=== PATIENT | male | born 1940 | race Caucasian/White ===

== ENCOUNTER 2022-12-21 15:29 | Emergency (ER) | payer MEDICARE, SELFPAY ==
[2022-12-21 15:49] VITALS: BP 144/92; PULSE 62; RESP 18; TEMP 36.2; O2SAT 99
[2022-12-21 16:23] LABS: Absolute Lymphocyte Count 1.75 X10^3/uL (0.83-4.51); Absolute Neutrophil Count 5.8 X10^3/uL (2.0-7.7); Basophil# 0.05 X10^3/uL; Basophil% 0.6 % (0-1); Eosinophil# 0.16 X10^3/uL; Eosinophils% 1.9 % (0-5); Hematocrit 39.2 % (40-54); Hemoglobin 13.5 g/dL (13.0-16.5); Lymphocyte # 1.75 X10^3/ul (0.83-4.51); Lymphocyte % 20.3 % (19-41); Mean Corp Hgb Conc 34.4 g/dL (32-36); Mean Corpuscular Hgb 32.8 pg (27.0-32.0); Mean Corpuscular Volume 95.1 fL (80-94); Mean Platelet Vol. 9.8 fl (6.2-12.0); Monocyte# 0.85 X10^3/uL; Monocyte% 9.8 % (0-10); NRBC Flagged by Analyzer 0 % (0-5); Neutrophil # 5.81 X10^3/uL (2.7-7.7); Neutrophil % 67.2 % (47-70); Platelet Count 223 K/mm3 (150-450); RBC Distribution Width SD 45.1 fl (35.1-43.9); Red Blood Count 4.12 M/mm3 (4.6-6.2); White Blood Count 8.6 K/mm3 (4.4-11.0)
--- NOTE | 2022-12-21 16:28 | RAD_ITS ---
STUDY: XR Chest 1 View 12/21/2022 4:30 PM REASON FOR EXAM: Male, 82 years old. CHEST PAIN SOB COMPARISON: None TECHNIQUE: XR Chest 1 View FINDINGS: There is no demonstrated pleural abnormality. Normal heart size. Normal mediastinum. Normal marissa. Prominent appearing increased interstitial lung markings. Normal visualized pulmonary arteries. There is atherosclerotic calcification of the aortic arch with tortuosity. There are diffuse degenerative changes of the visualized thoracic spine. There is degenerative osteoarthritis of the bilateral shoulders. There is no demonstrated abnormality of the visualized soft tissue structures of the upper abdomen. RAD/Chest 1 View (Portable) IMPRESSION: There are no acute findings. Electronically Signed: Nikhil Araiza MD at 16:48 EDT ,
[2022-12-21 16:37] LABS: Anion Gap 6 (5-15); BUN 23 mg/dL (7-18); BUN/Creat Ratio 18.3 RATIO (10-20); Calcium,Total 9.4 mg/dL (8.5-10.1); Chloride 105 mmol/L (98-107); Creatinine, Serum 1.26 mg/dL (0.70-1.30); EST Glomerular Filtration Rate 58 mL/min (>60); Est Glom Filt Rate - Afr Amer 70 mL/min (>60); Glucose 96 mg/dL (74-106); Potassium 4.1 mmol/L (3.5-5.1); Sodium Level 137 mmol/L (136-145)
[2022-12-21 16:52] VITALS: BMI 26.8
[2022-12-21 16:53] VITALS: O2SAT 98
--- NOTE | 2022-12-21 17:30 | EDS_ITS ---
HPI History of Present Illness Chief Complaint: Shortness of Breath Informant: patient and spouse/S.O. Onset/Context/Timing Onset: Days Context: gradual Timing: Continuous Quality: Negative for Dyspnea on exertion, Orthopnea, PND or Wheezing Current Severity: Mild Maximum Severity: Mild Worsened by: Nothing Relieved by: Nothing Associated Symptoms rhinorrhea; Negative for cough Chest Pain: Positive for None Narrative Narrative: 82-year-old male history of diabetes. Complaining of nasal congestion making it difficult for him to breathe out of his nose. He denies any chest pain. He denies any fever or chills. No significant cough. He denies any nausea, vomiting or diarrhea. PE Risk Factors: Negative for Cancer, OCP + Smoking + > 35, Prior DVT or PE, Recent immobilization, Recent surgery or Recent travel Prior similar symptoms: Yes Recent Illness/Hospitalization: No PFSH PFSH Medical History Abdominal aortic aneurysm Diabetes Hypertension Smoker Home Medications atorvastatin 20 mg tablet 20 mg PO DAILY 12/21/22 [History Last Taken Unknown] lisinopril 20 mg tablet 20 mg PO DAILY 12/21/22 [History Last Taken Unknown] metformin 500 mg tablet,extended release 24 hr 500 mg PO DAILY 12/21/22 [History Last Taken Unknown] prednisone 20 mg tablet 40 mg (2 x 20 mg) PO DAILY 7 days #14 tabs 12/21/22 [Rx Last Taken Unknown] Allergy/AdvReac Type Severity Reaction Status Date / Time No Known Allergies Allergy Verified 12/21/22 15:54 Social History Smoking Status: Former smoker ROS ROS ED ROS Narrative Nasal congestion. Denies chest pain or fever. Denies any significant cough. Review of Systems ROS Unobtainable: Denies due to encephalopathy Constitutional Constitutional ED: Denies chills or fever(s) Eyes Eyes: Denies blurry vision ENT ENT ED: Reports rhinorrhea; Denies ear pain or sore throat Cardiovascular Cardiovascular: Denies chest pain Respiratory/Chest Respiratory/Chest: Reports dyspnea; Denies cough Gastrointestinal Gastrointestinal: Denies abdominal pain Genitourinary Genitourinary ED: Denies dysuria Musculoskeletal Musculoskeletal: Denies arthralgias Integumentary Denies abscess Neurologic Neurologic: Denies headache(s) Psychiatric Psychiatric: Denies anxiety Endocrine Endocrinology: Denies cold intolerance Hematologic/Lymphatic Hematologic/Lymphatic: Denies easy bleeding or easy bruising Allergic/Immunologic Allergic/Immunologic ED: Denies mouth swelling or tongue swelling EXAM Physical Exam Narrative Exam Narrative: Well-appearing 82-year-old male. Vital signs stable afebrile. Pulse ox 99% on room air no signs hypoxia. Patient is in no distress. HEENT exam he is got some nasal congestion. There is no active runny nose at this time. Posterior pharynx normal. TMs obscured by wax bilaterally. Neck nontender no JVD. Lungs clear to auscultation. Heart regular rhythm no murmur. Abdomen soft nontender. Moving all 4 extremities. Calves are nontender that edema or cords. Neurologically he is awake and alert with no focal motor deficits. Const Vital Signs: 12/21/22 15:49 12/21/22 16:53 12/21/22 16:53 Temperature 97.2 F L Temperature Source Temporal Pulse Rate 62 Respiratory Rate 18 Respiratory Effort Normal Non-Labored Respiratory Depth Normal Respiratory Pattern Normal Blood Pressure 144/92 H Blood Pressure Mean 109 Pulse Ox 99 98 Oxygen Delivery Method Room Air Room Air Room Air Positive well nourished and well developed; Negative for obese, cachectic, contractures or unkempt General Appearance ED: well developed and NAD; Negative for unkempt, cachectic, contractures or pallor Nutritional Appearance: Negative for cachectic or obese HEENT Reports moist mucous membranes; Denies dry mucous membranes atraumatic; Negative for trauma or tenderness Mouth ED: No dry mucous membranes Mouth: No dry mucous membranes Eyes PERRL and EOMs intact bilaterally General Eye ED: Negative for pale conjunctiva or scleral icterus Neck no lymphadenopathy, supple, no meningeal signs and no JVD General: Negative for tenderness Lymph Lymphatic: Negative for other Chest Wall Chest: Negative for other Resp normal respiratory effort and clear to auscultation bilaterally Effort and Inspection: Negative for pain with movement Auscultation: Negative for rales, rhonchi or wheezes Cardio regular rate, regular rhythm, S1 normal heart sound, S2 normal heart sound and no murmurs Rate: Negative for bradycardia or tachycardic Rhythm: Negative for abnormal rhythm GI non-tender, non-distended and no masses Inspection: Negative for other Auscultation: normoactive bowel sounds Palpation: soft; Negative for tender or guarding Back/Spine no CVA tenderness and normal to inspection General Back: Negative for CVA tenderness, tenderness or other Extremity normal to inspection General Extremety ED: Negative for edema or tenderness General Extremity: Negative for edema Neuro oriented x3 and CN's II-XII intact bilaterally Sensorium / Orientation: alert, oriented to person, oriented to place and oriented to time; Negative for orientation impaired, confused, lethargic or stuporous Speech: speech normal Gait (Neuro): Negative for normal gait Motor Exam: strength 5/5 throughout Psych mental status grossly normal Appearance: Negative for unkempt Attitude: No agitated Mood & Affect: Negative for depressed, anxious or tearful Thought Process: normal thought process Skin no wounds and skin turgor normal General Skin Exam: Negative for jaundice or pallor Lesions: no lesions Rashes: no rashes Trauma: Negative for abrasion or laceration MDM MDM MDM Narrative Medical decision making narrative: 82-year-old with nasal congestion. No chest pain. States it is hard for him to breathe out of his nose. Nursing per protocol orders in triage due to the number of patients currently in the emergency department. Clinically patient looks well. I think this is just a case of nasal congestion from seasonal allergies and/or viral syndrome. Patient be placed on prednisone 40 mg a day for 7 days for his nasal congestion. Use [id number] nasal spray. Follow-up if not improving. Return if worse. History & Record Review Discussion w/independent historian: Patient and Family Lab Data Attestation: I reviewed the patient's lab results. Lab results narrative: Chest x-ray unremarkable. White count 8. H&H 13 and 39. Platelets 223. Electrolytes unremarkable gap is 6. BUN and creatinine of 23 and 1.2. Glucose 96. Labs: Laboratory Results - last 24 hr 12/21/22 15:18 WBC 8.6 RBC 4.12 L Hgb 13.5 Hct 39.2 L MCV 95.1 H MCH 32.8 H MCHC 34.4 RDW Std Deviation 45.1 H RDW Coeff of Divina 13.0 Plt Count 223 MPV 9.8 Immature Gran % (Auto) 0.200 Neut % (Auto) 67.2 Lymph % (Auto) 20.3 [place] % (Auto) 9.8 Eos % (Auto) 1.9 Baso % (Auto) 0.6 Absolute Neuts (auto) 5.8 Absolute Lymphs (auto) 1.75 Nucleated RBC % 0 Sodium 137 Potassium 4.1 Chloride 105 Carbon Dioxide 26.0 Anion Gap 6 BUN 23 H Creatinine 1.26 Est GFR (MDRD) Af Amer 70 Est GFR (MDRD) Non-Af 58 L BUN/Creatinine Ratio 18.3 Glucose 96 Calcium 9.4 Radiography Chest X-Ray - ED: 1 View, Read by ED Physician, Read by Radiologist, Heart, Lungs, Mediastinum, Bony Structures, No Acute Disease and Chronic Changes Diagnostic Testing: Clinical Impression(s) from Imaging Studies Chest X-Ray 12/21/22 16:28 IMPRESSION: There are no acute findings. Electronically Signed: Nikhil Araiza MD at 16:48 EDT , Chest x-ray, portable, single view shows no acute abnormality. Normal cardiac silhouette. Normal mediastinum. Normal lung arguello. Discharge Plan Triage Chief Complaint: Shortness of Breath ED Provider: Ad Hayes Dx/Rx/DC Orders Clinical Impression: Nasal congestion, History of diabetes mellitus Instructions: ED Allergic Rhinitis Prescriptions: New prednisone 20 mg tablet 40 mg PO DAILY 7 Days Qty: 14 0RF No Action metformin 500 mg tablet extended release 24 hr 500 mg PO DAILY atorvastatin 20 mg tablet 20 mg PO DAILY lisinopril 20 mg tablet 20 mg PO DAILY Primary Care Provider: Pavel Hassan Referrals: Pavel Hassan MD [Primary Care Provider] - 1 Week if not improving Activity Restrictions/Additional Instructions: Your chest x-ray and labs were unremarkable. This is either from seasonal allergies or virus. You will be placed on prednisone 40 mg a day for 1 week. That should decrease her nasal congestion and help it drain. Also go to one of their pharmacies and asked the pharmacist for an yrgm-xht-umzsset nasal spray you can use to help decrease the i nflammation in your nose. If you want to you can also use Debrox or Cerumenex which are eardrops to help decrease the wax in your ears. That has nothing to do with your breathing or the congestion in your nose. Disposition Disposition: Home, Self Care
== END 2022-12-21 17:53 | disposition home or self-care (01) ==
PROVIDERS: Emergency Provider Emergency Medicine; PCP Family Medicine; Visit Provider Emergency Medicine
DX: R09.81 Nasal congestion (principal); E11.9 Type 2 diabetes mellitus without complications; I10 Essential (primary) hypertension; Z79.899 Other long term (current) drug therapy; Z79.84 Long term (current) use of oral hypoglycemic drugs; Z87.891 Personal history of nicotine dependence
CPT/HCPCS: 71045; 80048; 85025; 94760; 99284

== ENCOUNTER 2023-01-13 10:50 | Emergency (ER) | payer MEDICARE, SELFPAY ==
[2023-01-13 10:51] VITALS: BP 124/102; PULSE 89; RESP 22; TEMP 36.1; O2SAT 99; BMI 25.9
[2023-01-13 11:08] VITALS: BP 124/102; PULSE 89; RESP 20; TEMP 36.1; O2SAT 98
--- NOTE | 2023-01-13 11:08 | EKG12_ITS ---
Test Reason : sob Blood Pressure : / mmHG Vent. Rate : 071 BPM Atrial Rate : 071 BPM P-R Int : 196 ms QRS Dur : 134 ms QT Int : 394 ms P-R-T Axes : 030 -67 088 degrees QTc Int : 428 ms Normal sinus rhythm Left axis deviation Non-specific intra-ventricular conduction block Minimal voltage criteria for LVH, may be normal variant ( Bran product ) Lateral infarct , age undetermined Abnormal ECG Confirmed by DANIEL OCONNELL, [place] ([id number]), editor book JACOB VILLAR ([id number]) on 01/14/2023 10:02:35 AM Referred By: Viktor Confirmed By:J[place] SANCHEZ MD
--- NOTE | 2023-01-13 11:09 | EX.ED.DYSGE1 ---
HPI <STEFANIA Nevarez - Last Filed: 01/13/23 17:03> History of Present Illness Chief Complaint: Shortness of Breath Narrative Narrative: Patient presenting today with shortness of breath that he has had for the past month. He reports that he has had a lot of nasal congestion that is making it difficult for him to breathe and has been taking Flonase without any relief. His reports that he has been sleeping more and not behaving normally, he has been more argumentative, and has not been wanting to do things he used to like to do and has been more fatigued. He was sent in by his PCP who felt that he was exhibiting signs of right-sided weakness as well as shuffling gait. He has a history of carotid stenosis, hypertension, diabetes mellitus, hyperlipidemia, and AAA. [facility] <STEFANIA Nevarez - Last Filed: 01/13/23 17:03> [facility] Medical History Abdominal aortic aneurysm Diabetes Hypertension Smoker Home Medications atorvastatin 20 mg tablet 20 mg PO DAILY 12/21/22 [History Last Taken Unknown] lisinopril 20 mg tablet 20 mg PO DAILY 12/21/22 [History Last Taken Unknown] metformin 500 mg tablet,extended release 24 hr 500 mg PO DAILY 12/21/22 [History Last Taken Unknown] prednisone 20 mg tablet 40 mg (2 x 20 mg) PO DAILY 7 days #14 tabs 12/21/22 [Rx Last Taken Unknown] cephalexin 500 mg capsule 500 mg PO Q12 #14 CAPSULES 01/13/23 [Rx Last Taken Unknown] Allergy/AdvReac Type Severity Reaction Status Date / Time No Known Allergies Allergy Verified 01/13/23 10:51 Social History Smoking Status: Former smoker ROS <STEFANIA Nevarez - Last Filed: 01/13/23 17:03> ROS ED Constitutional Constitutional ED: Denies chills, fever(s) or sweats Eyes Eyes: Denies blurry vision or diplopia ENT ENT ED: Reports nasal congestion; Denies headache(s), sinus pressure or sore throat Cardiovascular Cardiovascular: Denies chest pain Respiratory/Chest Respiratory/Chest: Reports dyspnea and dyspnea on exertion; Denies cough, tachypnea or wheezing Gastrointestinal Gastrointestinal: Denies abdominal pain, nausea or vomiting Genitourinary Genitourinary ED: Denies dysuria, hematuria or urinary frequency Musculoskeletal Musculoskeletal: Denies arthralgias or myalgias Integumentary Denies abscess, Abrasions or rash Neurologic Neurologic: Denies confusion, paresthesias or weakness EXAM <STEFANIA Nevarez - Last Filed: 01/13/23 17:03> Physical Exam Const Vital Signs: 01/13/23 10:51 01/13/23 11:08 01/13/23 11:08 Temperature 96.9 F L 97 F L Temperature Source Temporal Temporal Pulse Rate 89 89 Respiratory Rate 22 H 20 H 20 H Respiratory Effort Respiratory Pattern Blood Pressure 124/102 H 124/102 H Blood Pressure Mean 109 109 Pulse Ox 99 98 98 Oxygen Delivery Method Room Air Room Air Room Air 01/13/23 11:08 Temperature Temperature Source Pulse Rate Respiratory Rate Respiratory Effort Short of Breath Respiratory Pattern Tachypnea Blood Pressure Blood Pressure Mean Pulse Ox Oxygen Delivery Method Positive well nourished, well developed and no apparent distress General Appearance ED: well developed HEENT Reports normocephalic and head/scalp atraumatic Mouth ED: Yes moist mucous membranes normal Eyes PERRL and EOMs intact bilaterally Neck full ROM and supple Chest Wall inspection of chest normal Resp normal respiratory effort and clear to auscultation bilaterally Cardio regular rate and regular rhythm GI soft to palpation, non-tender, non-distended and no masses Back/Spine normal ROM and normal to inspection Extremity normal to inspection and full ROM Neuro oriented x3, CN's II-XII intact bilaterally, moves all extremities, no focal motor deficits and no sensory deficits noted Sensorium / Orientation: awake and alert Coordination / Balance: [id number] test normal and ivka-[id number] test normal Speech: speech normal Gait (Neuro): normal gait Motor Exam: strength 5/5 throughout Coordination: [id number] test normal Psych mental status grossly normal and thought process normal Skin no rashes or lesions noted and no wounds <Dr. Claudia Valencia DO - Last Filed: 01/13/23 23:08> Physical Exam Const Vital Signs: 01/13/23 10:51 01/13/23 11:08 01/13/23 11:08 Temperature 96.9 F L 97 F L Temperature Source Temporal Temporal Pulse Rate 89 89 Respiratory Rate 22 H 20 H 20 H Respiratory Effort Respiratory Pattern Blood Pressure 124/102 H 124/102 H Blood Pressure Mean 109 109 Pulse Ox 99 98 98 Oxygen Delivery Method Room Air Room Air Room Air 01/13/23 11:08 Temperature Temperature Source Pulse Rate Respiratory Rate Respiratory Effort Short of Breath Respiratory Pattern Tachypnea Blood Pressure Blood Pressure Mean Pulse Ox Oxygen Delivery Method [facility] <STEFANIA Nevarez - Last Filed: 01/13/23 17:03> [facility] Narrative Medical decision making narrative: Patient presenting today due to shortness of breath that he has had over the past month and nasal congestion. 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 He reports that his nasal congestion is what is contributing to his shortness of breath but he went to see his PCP this morning who felt that given his behavior changes and also felt that he was having right-sided weakness and shuffling gait, he should come into the ED to be evaluated. NIH is 0, there are no neuro deficits, patient's gait is WNL on exam. Labs obtained to rule out leukocytosis, anemia, electrolyte abnormality, and UTI. Patient does have a mild UTI, culture will be sent and he will be started on Keflex. Chest x-ray obtained to rule out pneumonia and is negative for any acute findings. Head CT obtained and does show a small old lacunar infarct. He denies any history of stroke, we did offer admission for further evaluation and treatment but patient declines this. He would like to follow-up for this outpatient and does not want to stay in the hospital. He has been given a neurologist referral. He is to follow-up with his PCP and will be discharged home in stable condition. He is comfortable with plan. Lab Data Attestation: I reviewed the patient's lab results. Labs: Laboratory Results - last 24 hr 01/13/23 01/13/23 11:10 12:20 WBC 6.2 RBC 4.23 L Hgb 13.6 Hct 41.1 MCV 97.2 H MCH 32.2 H MCHC 33.1 RDW Std Deviation 46.5 H RDW Coeff of Divina 13.0 Plt Count 199 MPV 9.5 Immature Gran % (Auto) 0.500 Neut % (Auto) 64.9 Lymph % (Auto) 19.3 [place] % (Auto) 12.1 H Eos % (Auto) 2.4 Baso % (Auto) 0.8 Absolute Neuts (auto) 4.0 Absolute Lymphs (auto) 1.20 Nucleated RBC % 0 Sodium 138 Potassium 4.2 Chloride 105 Carbon Dioxide 29.0 Anion Gap 4 L BUN 17 Creatinine 1.09 Estim Creat Clear Calc 47.17 Est GFR (MDRD) Af Amer 83 Est GFR (MDRD) Non-Af 68 BUN/Creatinine Ratio 15.6 Glucose 99 Calcium 9.2 Troponin I High Sens 39 Urine Color Yellow Urine Clarity Clear Urine pH 6.5 Ur Specific [place] 1.010 Urine Protein Negative Urine Glucose (UA) Normal Urine Ketones Negative Urine Occult Blood 25 H Urine Nitrite Negative Urine Bilirubin Negative Urine Urobilinogen Normal Ur Leukocyte Esterase 500 H Urine RBC 0-5 SEEN Urine WBC 25-50 SEEN Ur Squamous Epith Cells 0-5 SEEN Urine Bacteria 0 SEEN Urine Mucus 0 SEEN Radiography X-Ray: Read by ED Physician and Read by Radiologist Diagnostic Testing: Clinical Impression(s) from Imaging Studies Brain CT 01/13/23 11:12 IMPRESSION: Chronic involutional changes of the brain. 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 Electronically Signed: Elroy Zarco MD at 11:57 EDT , Chest X-Ray 01/13/23 11:25 IMPRESSION: Hyperinflation. The lungs are clear. Electronically Signed: Elroy Zarco MD at 11:58 EDT , EKG Initial EKG: Comments: Normal sinus rhythm, left axis deviation, no ST elevation, reviewed and interpreted by attending ED physician <Dr. Claudia Valencia, DO - Last Filed: 01/13/23 23:08> [facility] Narrative Medical decision making narrative: Patient presenting today due to shortness of breath that he has had over the past month and nasal congestion. 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 He reports that his nasal congestion is what is contributing to his shortness of breath but he went to see his PCP this morning who felt that given his behavior changes and also felt that he was having right-sided weakness and shuffling gait, he should come into the ED to be evaluated. NIH is 0, there are no neuro deficits, patient's gait is WNL on exam. Labs obtained to rule out leukocytosis, anemia, electrolyte abnormality, and UTI. Patient does have a mild UTI, culture will be sent and he will be started on Keflex. Chest x-ray obtained to rule out pneumonia and is negative for any acute findings. Head CT obtained and does show a small old lacunar infarct. He denies any history of stroke, we did offer admission for further evaluation and treatment but patient declines this. He would like to follow-up for this outpatient and does not want to stay in the hospital. He has been given a neurologist referral. He is to follow-up with his PCP and will be discharged home in stable condition. He is comfortable with plan. I have personally performed a face to face assessment of the patient and have reviewed the ARMAND Note. I performed a substantive portion of the visit including all aspects of the following. My de la cruz findings include: History is Patient is an 82-year-old male presenting from home for ongoing nasal congestion and his 's been concerned as he had personality changes, shuffling gait, some right-sided weakness and he was seen by nurse practitioner at his PCP office for the first time today. She was concerned there could be an acute neurologic process and sent him to the emergency room. Patient's NIH is 0. He has a steady gait in the emergency room. CT of the brain does show a small old lacunar infarct of the right thalamus. This is not subacute or acute I do not think this needs acute neurologic evaluation however given his age and symptom changes he is offered admission for further inpatient neurologic evaluation/MRI. He declines this. He does have a urinalysis concerning for UTI with 25-50 white blood cells. Culture is sent and he will be treated with Keflex. Is given referral for neurology for outpatient follow-up. At this time patient does have capacity to make his medical decisions. is at the bedside. Given return precautions. Other additions or changes: [None] Lab Data Labs: Laboratory Results - last 24 hr 01/13/23 01/13/23 11:10 12:20 WBC 6.2 RBC 4.23 L Hgb 13.6 Hct 41.1 MCV 97.2 H MCH 32.2 H MCHC 33.1 RDW Std Deviation 46.5 H RDW Coeff of Divina 13.0 Plt Count 199 MPV 9.5 Immature Gran % (Auto) 0.500 Neut % (Auto) 64.9 Lymph % (Auto) 19.3 [place] % (Auto) 12.1 H Eos % (Auto) 2.4 Baso % (Auto) 0.8 Absolute Neuts (auto) 4.0 Absolute Lymphs (auto) 1.20 Nucleated RBC % 0 Sodium 138 Potassium 4.2 Chloride 105 Carbon Dioxide 29.0 Anion Gap 4 L BUN 17 Creatinine 1.09 Estim Creat Clear Calc 47.17 Est GFR (MDRD) Af Amer 83 Est GFR (MDRD) Non-Af 68 BUN/Creatinine Ratio 15.6 Glucose 99 Calcium 9.2 Troponin I High Sens 39 Urine Color Yellow Urine Clarity Clear Urine pH 6.5 Ur Specific [place] 1.010 Urine Protein Negative Urine Glucose (UA) Normal Urine Ketones Negative Urine Occult Blood 25 H Urine Nitrite Negative Urine Bilirubin Negative Urine Urobilinogen Normal Ur Leukocyte Esterase 500 H Urine RBC 0-5 SEEN Urine WBC 25-50 SEEN Ur Squamous Epith Cells 0-5 SEEN Urine Bacteria 0 SEEN Urine Mucus 0 SEEN Radiography Diagnostic Testing: Clinical Impression(s) from Imaging Studies Brain CT 01/13/23 11:12 IMPRESSION: Chronic involutional changes of the brain. 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 Electronically Signed: Elroy Zarco MD at 11:57 EDT , Chest X-Ray 01/13/23 11:25 IMPRESSION: Hyperinflation. The lungs are clear. Electronically Signed: Elroy Zarco MD at 11:58 EDT , Discharge Plan Triage Chief Complaint: Shortness of Breath ED Midlevel Provider: Nessa Larkin ED Provider: Claudia Valencia Dx/Rx/DC Orders Clinical Impression: Chronic nasal congestion, Acute UTI, Weakness Instructions: ED Bladder Infection, Male (Adult) Prescriptions: New cephalexin 500 mg capsule 500 mg PO Q12 Qty: 14 0RF No Action metformin 500 mg tablet extended release 24 hr 500 mg PO DAILY atorvastatin 20 mg tablet 20 mg PO DAILY lisinopril 20 mg tablet 20 mg PO DAILY prednisone 20 mg tablet 40 mg PO DAILY 7 Days Qty: 14 0RF Primary Care Provider: Pavel Hassan Referrals: Pavel Hassan MD [Primary Care Provider] - Sergio Ariza MD [Non-Staff -Ordering Privileges] - 3-5 Days Activity Restrictions/Additional Instructions: Please follow-up with the neurologist and with your PCP. Please return for any worsening of your symptoms. Take antibiotics as prescribed. Disposition Disposition: Home, Self Care Discharge Date/Time: 01/13/23 13:24
--- NOTE | 2023-01-13 11:12 | CT_ITS ---
STUDY: CT BRAIN WITHOUT CONTRAST REASON FOR EXAM: Male, 82 years old. Personality changes, confusion, R side weakness RADIATION DOSAGE (If Supplied By Facility): CTDIvol = ( 44.99 ) mGy, DLP = ( 779.24 ) mGycm TECHNIQUE: Transaxial CT imaging of the brain was performed without administration of intravenous contrast material. Individualized dose optimization techniques were used for this CT. COMPARISON: No relevant priors. FINDINGS: Normal soft tissue structures. Normal calvarium. There is mild cerebral atrophy with widening of the extra-axial spaces and ventricular dilatation. There are areas of decreased attenuation within the white matter tracts of the supratentorial brain, consistent with microvascular disease changes. Tiny old lacunae seen in the right thalamus. Normal brainstem. There is mild cerebellar atrophy. There is no intracranial hemorrhage. There are no findings of an acute ischemic infarction. Atherosclerotic calcification of the cavernous portions of the internal carotid arteries bilaterally. Normal visualized paranasal sinuses. CT/Brain/Head without Contrast IMPRESSION: Chronic involutional changes of the brain. 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 Electronically Signed: Elroy Zarco MD at 11:57 EDT ,
[2023-01-13 11:22] LABS: Basophil# 0.05 X10^3/uL; Basophil% 0.8 % (0-1); Eosinophil# 0.15 X10^3/uL; Eosinophils% 2.4 % (0-5); Hematocrit 41.1 % (40-54); Hemoglobin 13.6 g/dL (13.0-16.5); Lymphocyte % 19.3 % (19-41); Mean Corp Hgb Conc 33.1 g/dL (32-36); Mean Corpuscular Hgb 32.2 pg (27.0-32.0); Mean Corpuscular Volume 97.2 fL (80-94); Mean Platelet Vol. 9.5 fl (6.2-12.0); Monocyte# 0.75 X10^3/uL; Monocyte% 12.1 % (0-10); NRBC Flagged by Analyzer 0 % (0-5); Neutrophil # 4.03 X10^3/uL (2.7-7.7); Neutrophil % 64.9 % (47-70); Platelet Count 199 K/mm3 (150-450); RBC Distribution Width SD 46.5 fl (35.1-43.9); Red Blood Count 4.23 M/mm3 (4.6-6.2); White Blood Count 6.2 K/mm3 (4.4-11.0)
--- NOTE | 2023-01-13 11:25 | RAD_ITS ---
STUDY: X-RAY CHEST REASON FOR EXAM: Male, 82 years old. Shortness of breath TECHNIQUE: PA and lateral views of the chest. COMPARISON: Comparison is made with prior study dated December 21, 2022. FINDINGS: Hyperinflation. The lungs are clear. There is no demonstrated pleural abnormality. Normal size heart. Normal mediastinum and marissa. Normal visualized pulmonary arteries. There is atherosclerotic calcification of the aortic arch with tortuosity. There are diffuse degenerative changes of the visualized thoracic spine. Normal visualized ribs, clavicles, and shoulders. There is no demonstrated abnormality of the visualized soft tissue structures of the upper abdomen. RAD/Chest PA and Lateral IMPRESSION: Hyperinflation. The lungs are clear. Electronically Signed: Elroy Zarco MD at 11:58 EDT ,
[2023-01-13 11:38] LABS: Anion Gap 4 (5-15); BUN 17 mg/dL (7-18); BUN/Creat Ratio 15.6 RATIO (10-20); Calcium,Total 9.2 mg/dL (8.5-10.1); Chloride 105 mmol/L (98-107); Creatinine, Serum 1.09 mg/dL (0.70-1.30); EST Glomerular Filtration Rate 68 mL/min (>60); Est Glom Filt Rate - Afr Amer 83 mL/min (>60); Estimated Creatinine Clearance 47.17 ml/min; Glucose 99 mg/dL (74-106); Potassium 4.2 mmol/L (3.5-5.1); Sodium Level 138 mmol/L (136-145); Troponin-I HS 39 pg/mL (3.0-78.0)
[2023-01-13 12:26] LABS: Bacteria 0 SEEN /hpf (None Seen); Mucous, Urine 0 SEEN /hpf (<or=2+)
[2023-01-13 12:38] LABS: Color, Urine Yellow (Yellow); Glucose, Dipstick Normal (Normal); Ketone-Dipstick Negative (Negative); Leukocyte Esterase-Dipstick 500 /ul (Negative); Nitrite-Dipstick Negative (Negative); Occult Blood-Urine 25 /ul (Negative); Protein-Dipstick Negative (Negative); Urine Bilirubin Dipstick Negative (Negative); Urine Clarity Clear (Clear); Urine Urobilinogen Normal (Normal); Urine pH 6.5 (5.0 - 8.0)
[2023-01-13 12:47] LABS: Red Blood Cells-Urine 0-5 SEEN /hpf (0-5); Squamous Epithelial Cells - UA 0-5 SEEN /hpf (0-5); White Blood Cells 25-50 SEEN /hpf (0-5)
[2023-01-13] MEDS: Cephalexin 250 MG Capsule 500 MG PO (13:16)
== END 2023-01-13 13:24 | disposition home or self-care (01) ==
PROVIDERS: Physician Assistant; Emergency Provider Emergency Medicine; PCP Family Medicine; Visit Provider Emergency Medicine
DX: R09.81 Nasal congestion (principal); N39.0 Urinary tract infection, site not specified; R53.1 Weakness; R06.02 Shortness of breath; Z87.891 Personal history of nicotine dependence
CPT/HCPCS: 70450; 71046; 80048; 81001; 84484; 85025; 87086; 93005; 99283; A4216